=== PATIENT | female | born 1990 | race Two or more races ===

== ENCOUNTER 2017-01-07 10:09 | Emergency (ER) | payer BC ==
--- NOTE | ~2017-01-07 | ER ---
PATIENT'S NAME: CARMELITA MALDONADO [facility] AGE: 26 Y [address] ROOM: [place] [address] LOCATION: [facility] ADMIT DATE: 01/07/2017 ER/Outpatient Report DISCHARGE DATE: 01/07/2017 FAMILY PHYSICIAN: Jovan Davis MD ATTENDING PHYSICIAN: Fermin Mcnally Time of Arrival: 1009 hours. Time of Evaluation: 1013 hours. CHIEF COMPLAINT: Abdominal pain. HISTORY OF PRESENT ILLNESS: The patient is a 26-year-old female, who presents to the emergency department today with a chief complaint of abdominal pain. She reports that it started about 5:30 this morning. It is in mid epigastric region. It is currently crampy, pressure-type pain. It is currently 7/10 in severity. She reports nausea and vomiting x1. Denies any fevers. Does have some chills. No diarrhea or constipation. No urinary frequency, urgency, or painful urination. Last bowel movement was normal today. No blood in her stool. No dark tarry stools. PAST MEDICAL HISTORY: Kidney infections. PAST SURGICAL HISTORY: None. 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 SOCIAL HISTORY: The patient denies any tobacco, alcohol, or illicit drug use. ALLERGIES: NO KNOWN DRUG ALLERGIES. MEDICATIONS: Please see list. PRIMARY CARE DOCTOR: Dr. Davis. REVIEW OF SYSTEMS: All systems are reviewed by myself and are negative with the exception of PATIENT'S NAME: CARMELITA MALDONADO [facility] AGE: 26 Y [address] ROOM: [place] [address] LOCATION: [facility] ADMIT DATE: 01/07/2017 ER/Outpatient Report DISCHARGE DATE: 01/07/2017 FAMILY PHYSICIAN: Jovan Davis MD ATTENDING PHYSICIAN: Fermin Mcnally those discussed in the HPI and past medical history. PHYSICAL EXAMINATION: VITAL SIGNS: Weight 91.6 kg, blood pressure 136/87, pulse 89, respiratory rate 20, temperature 97.0, oxygen saturation 97% on room air. GENERAL: The patient is a 26-year-old female, who appears stated age, in mild acute distress. HEENT: Head: Normocephalic, atraumatic. Pupils are equal, round, and reactive to light. Extraocular muscles are intact. Mucous membranes are moist. NECK: Supple. There is no nuchal rigidity. CARDIOVASCULAR: Regular rate and rhythm. No murmurs, rubs, or gallops. LUNGS: Clear to auscultation bilaterally. No wheezes, rales, or rhonchi. ABDOMEN: Soft, mild midepigastric tenderness to palpation. There is no rebound, rigidity, or guarding. Positive bowel sounds. MUSCULOSKELETAL: The patient moves all 4 extremities. SKIN: It is warm and dry. There are no rashes or lesions noted. LABORATORY DATA AND X-RAYS: Labs and x-rays are obtained. Urinalysis shows 25 leukocyte esterase, rare wbc's, 0-2 epithelials, urine hCG is negative. H. pylori is positive. GC and chlamydia are negative. CBC: White blood cell count 19.4, otherwise normal. ANC is 16.3. CMP is unremarkable. LFTs are normal. IMPRESSION: 1. Acute nonsurgical midepigastric abdominal pain. 2. Helicobacter pylori positive. 3. Initial visit. EMERGENCY DEPARTMENT COURSE: The patient was brought back to the examination room. Seen and evaluated by myself. IV is established. Laboratory analysis and imaging are obtained as described above. The patient was given 4 mg Zofran IV. She was given 30 mg of Toradol IV. She was also given a liter of normal saline. I have discussed results with the patient. I have re-examined the patient's abdominal exam. It continues to remain nonsurgical at this time. I have discussed results with the patient, and I have written a prescription for omeprazole, amoxicillin, and clarithromycin. She does have a prescription for [place] already. I have discussed following up with the primary care doctor in 1 [address] Davis. I have discussed return to care instructions including worsening symptoms or any other concerns to return to the emergency department as soon as possible. The patient is agreeable without further questions. DISPOSITION: The patient discharged home in good condition. PATIENT'S NAME: CARMELITA MALDONADO [facility] AGE: 26 Y [address] ROOM: [place], [place] [address] LOCATION: ED ADMIT DATE: 01/07/2017 ER/Outpatient Report DISCHARGE DATE: 01/07/2017 FAMILY PHYSICIAN: Jovan Davis MD ATTENDING PHYSICIAN: Fermin Mcnally DO BEBE AGUILLON/lamont /[id number] d: 01/07/172020 t: 01/09/17 07, OUTPATIENT REPORT
[2017-01-07 10:33] LABS: BILIRUBIN URINE NEGATIVE (NEGATIVE); BLOOD URINE NEGATIVE /UL (NEGATIVE); COLOR URINE YELLOW (YELLOW); GLUCOSE URINE NEGATIVE (NEGATIVE); KETONE URINE NEGATIVE (NEGATIVE); LEUKOCYTES URINE 25 /UL (NEGATIVE); NITRITE URINE NEGATIVE (NEGATIVE); PROTEIN URINE 15 mg/dL (NEGATIVE); TURBIDITY URINE CLEAR (CLEAR); UROBILINOGEN URINE NORMAL (NORMAL)
[2017-01-07 10:39] LABS: BASOPHIL # 0.1 K/uL (0.0-0.2); BASOPHIL % 0.3 %; EOSINOPHIL % 0.1 %; HEMATOCRIT 38.1 % (33.0-46.0); HEMOGLOBIN 12.8 g/dL (11.0-15.0); IMMATURE GRANULOCYTE # 0.1 K/uL (0.0-0.3); IMMATURE GRANULOCYTE % 0.5 %; LYMPHOCYTE # 2.1 K/uL (0.8-4.0); LYMPHOCYTE % 10.6 %; MCH 29.2 pg (27.0-34.0); MCHC 33.6 gm/dL (32.0-36.5); MCV 86.8 fl (83.0-98.0); MONOCYTE # 0.8 K/uL (0.0-1.0); MONOCYTE % 4.1 %; MPV 9.1 fl (9.4-12.4); NEUTROPHIL # (ANC) 16.3 K/uL (1.8-7.8); NEUTROPHIL % 84.4 %; NRBC % 0 /100WBC (0-0.00); PLATELET COUNT 368 K/uL (150-450); RBC 4.39 M/uL (3.50-5.00); RDW-CV 12.7 % (11.9-14.6); WBC 19.4 K/uL (4.0-11.0)
[2017-01-07 10:41] LABS: BACTERIA URINE NEGATIVE (NEGATIVE); EPITHELIAL URINE 0-2 #/HPF (NEGATIVE); RBC URINE NEGATIVE #/HPF (NEGATIVE); WBC URINE RARE #/HPF (NEGATIVE)
[2017-01-07 10:55] LABS: ALBUMIN 3.8 gm/dL (3.5-5.0); ALK PHOS 90 IU/L (33-138); ALT 53 IU/L (12-78); ANION GAP 11.7 (10.0-19.0); AST 28 IU/L (10-40); BLOOD UREA NITROGEN 8 mg/dL (6-24); CALCIUM 8.7 mg/dL (8.5-10.5); CHLORIDE 107 mMol/L (96-110); CO2 22 mMol/L (22-32); CREATININE 0.6 mg/dL (0.5-1.1); ESTIMATED GFR (MDRD EQUATION) > 60; POTASSIUM 3.7 mMol/L (3.7-5.1); SODIUM 137 mMol/L (135-145); TOTAL PROTEIN 7.5 g/dL (6.0-8.4)
[2017-01-07 10:58] LABS: TOTAL BILIRUBIN 0.6 mg/dL (0.0-1.5)
== END 2017-01-07 12:19 | disposition disaster alternative care site (69) ==
LOC: GMED 10:09
PROVIDERS: Emergency Medicine
DX: R10.13 Epigastric pain (principal); B96.81 Helicobacter pylori [H. pylori] as the cause of diseases classified elsewhere
CPT/HCPCS: J1885; J2270; J2405; J7030